=== PATIENT | male | born 1955 | race Caucasian/White ===

== ENCOUNTER 2017-04-30 10:00 | Emergency (ER) | payer OTHER ==
[~2017-04-30] VITALS: Ht 170.2 cm; Wt 81.8 kg
[~2017-04-30 10:00] MED LIST: ACYC200C PO; ASCO500 PO; ASPI81 PO; DOCO300C3 PO; GEMF600T3 PO; MULT-603 PO; OMEP20 PO; VITAD1000 PO
[2017-04-30] MEDS ORDERED: LACT30L PO (10:07)
[2017-04-30] MEDS ORDERED: THIA100 PO (10:14)
[2017-04-30] MEDS ORDERED: IBUP-2071 PO (10:14)
[2017-04-30] MEDS ORDERED: PROP10TA73 PO (10:14)
[2017-04-30] MEDS ORDERED: FERR-89 PO (10:14)
[2017-04-30] MEDS ORDERED: FURO40 PO (10:14)
[2017-04-30] MEDS ORDERED: SPIR50 PO (10:14)
[2017-04-30] MEDS ORDERED: FOLI1 PO (10:14)
[2017-04-30] MEDS ORDERED: GABA-531 PO (10:14)
[2017-04-30] MEDS ORDERED: KETOROLAC TROMETHAMINE 60 MG/2 ML VIAL IM ONE (11:15)
[2017-04-30] MEDS ORDERED: HEPATITIS A VACCINE, INACTI [ADULT] 1,440 UNITS/ML VIAL IM ONE (11:15)
[2017-04-30] MEDS ORDERED: HYDROCODONE/ACETAMINOPHEN 5-325 MG TABLET PO ONE (11:45)
[2017-04-30 12:22] VITALS: BP 118/77
== END 2017-04-30 12:35 | disposition home or self-care (01) ==
LOC: EMS 10:01
DX: M17.0 Bilateral primary osteoarthritis of knee (principal); F17.200 Nicotine dependence, unspecified, uncomplicated; Z76.0 Encounter for issue of repeat prescription; Z59.0 Homelessness
CPT/HCPCS: 90471; 90632; 96372; 99284; J1885